=== PATIENT | male | born 1940 ===

== ENCOUNTER 2017-12-09 08:31 | Outpatient (CLI) | payer OTHER ==
[~2017-12-09] VITALS: Ht 157.5 cm; Wt 54.4 kg
== END 2017-12-09 15:53 | disposition home or self-care (01) ==
LOC: OFIC 805 08:31
DX: J31.0 Chronic rhinitis (principal); H90.3 Sensorineural hearing loss, bilateral; H61.23 Impacted cerumen, bilateral

== ENCOUNTER 2017-12-15 21:03 | Emergency (ER) | payer OTHER ==
[~2017-12-15] VITALS: Ht 157.5 cm; Wt 54.4 kg
[2017-12-15] MEDS ORDERED: METFORMIN HCL750 MG (21:59)
[2017-12-15] MEDS ORDERED: COZAAR100 MG (21:59)
[2017-12-15] MEDS ORDERED: CARBIDOPA-LEVO1 EA12 (21:59)
== END 2017-12-16 13:28 | disposition home or self-care (01) ==
LOC: ER 21:03
DX: G20 Parkinson's disease (principal); G25.2 Other specified forms of tremor; E86.0 Dehydration